=== PATIENT | female | born 1985 | race Caucasian/White ===

== ENCOUNTER 2025-03-12 06:20 | Emergency (ER) | payer OTHER, SELFPAY ==
--- OUTSIDE RECORDS SUMMARY | 2025-03-12 06:23 | XMS_ITS | Clinical Summary ---
Author Organization [employer] [facility] Address [facility] [place] [address] Care Team Providers Care Real Estate Transaction Manager Name Role Phone AbiBradri Katina Primary Care Provider [phone] Allergies No known active allergies Medications traZODone (DESYREL) 100 mg tabletIndicatio ns:Psychophysio logical insomnia Take 1 Tablet (100 mg) by mouth at bedtime. 100 Tablet 3 4 Active predniSONE 20 mg tabletIndicatio ns:Skin lesion,Itch of skin Take 3 Tablets (60 mg) by mouth once daily with a meal for 4 days, THEN 2 Tablets (40 mg) once daily with a meal for 4 days, THEN 1 Tablet (20 mg) once daily with a meal for 4 days. 24 Tablet 5 03/12/20 25 Active hydrOXYzine HCL 25 mg tabletIndicatio ns:Skin lesion,Itch of skin Take 1 Tablet (25 mg) by mouth every 6 hours if needed for Itching. 100 Tablet 5 Active triamcinolone (ARISTOCORT; KENALOG) 0.1 % creamIndication s:Atopic dermatitis, unspecified type Apply topically to affected area(s) two times daily. Up to 2 weeks for eczema flare to arms and legs 80 g 4 02/29/20 25 Discontinu ed(*Allerg ic/Adverse Rxn/Side Effects) Hospital, Clinic, or Other Facility Administered Medication Ordered Dose Route Frequency Start Date End Date Status levonorgestrel (MIRENA) 20 mcg/24 hours (8 yrs) 52 mg intrauterine device (IUD) 1 DeviceIndications:Encounter for IUD insertion 1 Device IU Q 8 YEARS 03/22/2024 Active Active Problems Problem Noted Date Diagnosed Date Atopic dermatitis 03/13/2024 Iron deficiency anemia, unspecified 12/15/2016 Decreased appetite 11/26/2015 Atypical nevus 06/27/2015 Overview (06/27/2015): Left inferior breast lesion 06/2015: Evolving melanoma in situ cannot be excluded. As such, complete excision with 0.5 cm negative margins and close clinical followup is recommended. Patient advised to return for wide excision. Dermatology referral placed for skin evaluation. 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 Plan: Pap/HPV due 02/2027. Adjustment disorder with depressed mood 02/14/20 15 Hx of cold sores 01/30/2014 Tobacco abuse 01/04/2014 Supervision of normal first 01/04/2014 Overview (01/04/2014): FOB: Polo Wright ACNE [birth year]14[birth year]2002 Resolved Problems Problem Noted Date Diagnosed Date Resolved Date Sleep disorder 09/03/2012 01/04/2014 Adjustment disorder with dep ressed mood, and anxiety 04/14/2011 01/04/2014 Low grade squamous intraepit helial lesion (LGSIL) at risk for high grade squamous intraepithelial lesion (HGSIL) on cytologic smear of cervix 04/17/2009 12/27/2016 Overview (12/23/2016): 04/17/2009: LSIL; cannot exclude a higher-grade lesion 01/30/2014: LSIL; cannot exclude a higher-grade lesion TOBACCO USE 08/27/2004 09/03/2012 CONTRACEPTIVE MANAGEMENT NOS 08/29/2003 09/03/2012 LATE EFFECT, CHEST INJURY 06/21/2001 Encounters Date Type Department Care Team Description 02/28/2025 3:20 PM CDT Office Visit [facility] [address] [place] [address] Nicole Valle MD Derm Problem (Dry itchy skin, triamcinolone cream made it worse ) 02/28/2025 Travel from Last 3 Months Immunizations Immunization Administration Dates Next Due DTP 05/19/1991, 8,01/03/1986,1985, Human Papilloma Virus Vaccine 03/31/2010, 010,10/04/2009 MMR 05/07/1998,09/18/1986 Oral Polio Vaccine 03/25/1988,01/03/1986, 986,1985 Td (Age >=7 Years) 05/08/1998 Tdap 06/18/2014,08/31/2012 Family History Medical History Relation Name Comments Psychiatric illness Brother paranoid schizophrenia Crohn's disease Father Nephrolithiasis Father Cancer-breast Maternal Aunt Diabetes Maternal Grandfather Hypertension Maternal Grandfather Relation Name Status Comments Brother Father Maternal Aunt Maternal Grandfather Social History Tobacco Use Types Packs/Day Years Used Date Smoking Tobacco: Every Day Cigarettes 1 24.5 Started: 09/20/2000 Smokeless Tobacco: Never Tobacco Cessation:Ready to Q uit: Not Asked; Counseling Given: Not Answered Comments:trying to cut back Alcohol Use Standard Drinks/Week Comments Yes 0 (1 standard drink = 0.6 oz pur e alcohol) ocassional PHQ-2 Answer Date Recorded PHQ-2 TOTAL SCORE 0 03/13/2024 Social Connections Answer Date Recorded Do you often feel lonely or isolated from those around you? 0 02/28/2025 Financial Resource Strain Answer Date R ecorded Difficulty of Paying Living Expenses 3 02/28/2025 Difficulty of Paying Living Expenses Not on file 02/28/2025 Food Insecurity Answer Date Recorded Do you worry your food will run out before you are able to buy more? 1 02/28/2025 Transportation Needs Answer Date Record ed Does lack of transportation keep you from medica l appointments? 1 02/28/2025 Does lack of transportation keep you from work, meetings or getting things that you need? 1 02/28/2025 Housing Stability Answer Date Recorded What is your housing situation today? 1 02/28/2025 Utilities Answer Date Recorded Do you have trouble paying f or utilities (for example, heat, electricity, water, phone)? 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 Please review and update details. Last Filed Vital Signs Vital Sign Reading Time Taken Comments Blood Pressure 126/78 02/28/2025 3:12 PM CDT Pulse 74 02/28/2025 3:12 PM CDT Temperature 36.2 C (97.2 F) 03/01/2023 8:20 AM CDT Respiratory Rate 14 03/01/2023 8:20 AM CDT Oxygen Saturation 98% 02/28/2025 3:12 PM CDT Inhaled Oxygen Concentration - - Weight 50.2 kg (110 lb 11.2 oz) 02/28/2025 3:12 PM CDT Height 161 cm (5' 3.39) 02/28/2025 3:12 PM CDT Body Mass Index 19.37 02/28/2025 3:12 PM CDT Plan of Treatment Upcoming Encounters Date Type Department Care Team (Late st Contact Info) Description 03/27/2025 1:30 PM CDT Office Visit [facility] [address] [facility] [address] [place] [address] Jovanni Link [place] [address] [place] [id number] Health Maintenance Due Date Last Done Comments Hepatitis B series for 19+ ( 1 of 3 - 19+ 3-dose series) 2004 Pneumococcal series for age 6-49 (1 of 2 - PCV) 2004 COVID-19 vaccine series ( - season) 2024 Tetanus booster 06/18/2024 06/18/2014, 08/20, 05/08/1998 Depression screening for age 12+ 03/13/2025 03/13/2024, 10/07/2022, 04/28/2021, Additional history exists Influenza Vaccine (Season Ended) 2025 BMI (ht and wt on same day) for age 18+ 02/28/2026 02/28/2025, 03/13/2024, 01/31/2024, Additional history exists Pap test for age 21-65 03/13/2027 , 03/13/2024, 04/28/2021, Additional history exists HIV for age 15-65 Completed 01/30/2014 Tdap Completed 06/18/2014, 08/31/2012 Hepatitis C screening for ag e 18-79 Completed 03/13/2024 Procedures Procedure Name Priority Date/Time Associated Diagnosis Comments STRAPPING MACHINE OPERATOR THIN PREP PAP SCREEN IMAGED Routine 03/13/2024 1:14 PM CDT Cervical cancer screening ANTI HCV Routine 03/13/2024 11:57 AM CDT Need for hepatitis C screening test ANTI HIV 1/2 Routine 01/30/2014 11:23 AM CDT , first (HC) from Last 3 Months or Most Recently Relevant to Health Maintenance Results * STRAPPING MACHINE OPERATOR THIN PREP PAP SCREEN IMAGED (03/13/2024 1:14 PM CDT) Case Report Gynecologic Cytology Report Case: [id number] Authorizing Provider: Princess Alex DO Collected: 03/13/2024 1314 Ordering Location: [facility] Received: 03/13/2024 1314 Clinic First Screen: Vani Timmons Rescreen: Aundrea Briggs Specimen: STRAPPING MACHINE OPERATOR ThinPrep Vial Screening, Cervical 03/21/2024 8:49 AM CDT [facility] INTERPRETATION/ RESULT NEGATIVE FOR INTRAEPITHELIAL LESION OR MALIGNANCY (NIL) (none) 03/21/2024 8:49 AM CDT [facility] at 0849 CDT SPECIMEN ADEQUACY Satisfactory for evaluation Endocervical component present 03/21/2024 8:49 AM CDT [facility] HPV REQUEST HPV and PAP 03/21/2024 8:49 AM CDT [facility] Date of LMP N/A 03/21/2024 8:49 AM CDT [facility] Last Pap Date 04/28/21 03/21/2024 8:49 AM CDT [facility] Last Pap Result NIL 8:49 AM CDT [facility] Abnormal Pap or [place] Bx in last 5 years Yes 03/21/2024 8:49 AM CDT [facility] Menstrual Status Hormonally Suppressed 03/21/2024 8:49 AM CDT [facility] [place] Bx Done Today No 03/21/2024 8:49 AM CDT [facility] Additional Information None given 03/21/2024 8:49 AM CDT [facility] Comment: Cytology is screened at [facility] - [address], [place] [address] and [facility] - [address], [place] [address] and [facility] - [address] [place] [address] Interpreted at [facility] - [address], [place] [address] Automated Review Successful 03/21/2024 8:49 AM CDT [facility] Comment:Specimen processed s uccessfully by automated magnetic doctor device, ThinPrep Imaging System, [employer] ANCILLARY TESTING STRAPPING MACHINE OPERATOR HPV Ordered, Please see separate report 03/21/2024 8:49 AM CDT [facility] Note The pap test is a screening technique, not a diagnostic procedure. It is used primarily to screen for squamous cancers and precursor lesions. Published studies have shown that it is subject to both false negative and false positive results. The pap test should not be used as the sole means to diagnose or exclude pre-malignant and malignant lesions. 03/21/2024 8:49 AM CDT [facility]- ENTRAL LABORAT[facility] Other (Cervical) Non-Blood / Unknown 03/13/2024 1:14 PM CDT 03/13/2024 1:14 PM CDT Princess Alex DO PATHOLOGY/CYTOLOGY Final Re sult Performing Organization Address [facility] de Phone Number [facility] [address] [place] [address], [place] * ANTI HCV (03/13/2024 11:57 AM CDT) Pathologist [facility] HEPATITIS C ANTIBODY Non-Reacti ve Non-React eliceo 03/13/2024 7:10 PM CDT [facility] TRAL LABORAT[facility] Comment:Please note, per www .CDC.gov: If a patient is known to be at high risk of HCV infection, or is symptomatic, and the physician's suspicion of HCV infection is high, HCV RNA testing is often employed and is of diagnostic value, even after an initial negative anti-HCV test result. Blood BLOOD SPECIMEN / Unknown Venipuncture / Unknown 03/13/2024 11:57 AM CDT 03/13/2024 11:57 AM CDT Princess Alex DO SEND OUTS Final Resul t Performing Organization Address [facility] Co de Phone Number [facility] [address] [place] [id number], [place] * ANTI HIV 1/2 [[address].0] (01/30/2014 11:23 AM CDT) Pathologist [facility] HIV-1/HIV-2 ANTIBODY Non-Reacti ve Non-Reacti ve 01/30/2014 11:04 PM CDT [facility] Blood specimen (specimen) BLOOD SPECIMEN / Unknown Venipuncture / Unknown 01/30/2014 11:23 AM CDT 01/30/2014 11:23 AM CDT Narrative [facility] - 01/30/2014 11:04 PM CDT HIV-1 p24 and HIV-1/HIV-2 Ab not detected us Kusum Garsia MD SEND OUTS Irina l Result [facility] [address] [place] [address], [place] from Last 3 Months or Most Recently Relevant to Health Maintenance Insurance [facility] [place] [id number] [facility] [place] [id number] Care Teams Real Estate Transaction Manager Relationship Specialty [place] [address] [place] [address] PCP - General Family Practice 08/20/15
--- OUTSIDE RECORDS SUMMARY | 2025-03-12 06:23 | XMS_ITS | Clinical Summary ---
Author Organization [facility] Address [address] [address] Phone Care Team Providers Care Chain Mender Name Role Phone Unavailable Primary Care Provider Unavailabl e Allergies No known active allergies Medications ibuprofen (ADVIL) 200 MG tablet Take 3 Tabs by mouth every six hours as needed for Pain. Active desogestrel-ethi nyl estradiol (MIRCETTE) 0.15-0.02/0.01 MG (07/02) oral tablet Take 1 Tab by mouth one time a day. 3 Package 3 10/17/2014 Active sulfamethoxazole -trimethoprim (BACTRIM DS, SEPTRA DS) 800-160 MG oral tablet Take 1 Tab by mouth two times a day. 20 Tab 0 10/17/2014 Active Active Problems Problem Noted Date Diagnosed Date Normal , first 06/08/2014 Immunizations Immunization Administration Dates Next Due DPT <7 years (Historic) 05/19/1991,03/25,01/03/1986,10/31/18 86,1985 Human Papilloma Virus Quadrivalent 03/31/2010,,10/04/2009 MMR 05/07/1998,09/18/1986 OPV (Historic Use Only) 03/25/1988,01/03,1985,08/04/19 85 TD >7yrs With Preservative 05/08/1998 Tdap (7 years and older) 06/18/2014,08/31/2012 Medical History Medical History Date Comments LGSIL (low grade squamous intraepithelial dyspla eder) 03/05/14 Vomiting alone 03/05/2014 Family History Medical History Relation Comments Psychiatric Disease Brother paranoid lamonte izophrenia Diabetes Maternal Grandfather Relation Status Comments Brother Maternal Grandfather Social History Tobacco Use Types Packs/Day Years Used Date Smoking Tobacco: Every Day Cigarettes 0.5 16 Smokeless Tobacco: Never Tobacco Cessation:Ready to Q uit: Yes; Counseling Given: Yes Alcohol Use Standard Drinks/Week Comments No 0 (1 standard drink = 0.6 oz pur e alcohol) Comments No Sex and Gender Information Value Date Recorded Sex Assigned at Not on file Legal Sex Female 8:42 PM CDT Gender Identity Not on file Sexual Orientation Not on file 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 Not on file Not on file Obstetrics History Para Term AB IAB SAB Ectopic Molar Multiple Living Live Births 1 1 1 0 1 1 Date Outcome GA Total Labor Labor/2nd/3rd Weight Sex Type Anes PTL Valerie A1 A5 Name Clin 2013 Term 39w 5d 9h 41m 8h 32m/0h 59m/0h 10m 3124 g (6 lb 14.2 oz) F Vag-S pont Epidur al Livin g 9 9 Dallasl eadrew, Cally Maldonado MD, FACOG Delivery Location:[facility] Last Filed Vital Signs Vital Sign Reading Time Taken Comments Blood Pressure 116/78 10/17/2014 9:49 AM SANITARY LANDFILL SUPERVISOR Pulse 72 08/31/2014 7:46 AM SANITARY LANDFILL SUPERVISOR Temperature 36.6 C (97.9 F) 08/31/2014 7:46 AM SANITARY LANDFILL SUPERVISOR Respiratory Rate 16 08/31/2014 7:46 AM SANITARY LANDFILL SUPERVISOR Oxygen Saturation 94% 08/30/2014 6:30 AM SANITARY LANDFILL SUPERVISOR Inhaled Oxygen Concentration - - Weight 56.7 kg (125 lb) 10/17/2014 9:49 AM SANITARY LANDFILL SUPERVISOR Height 162.6 cm (5' 4.02) 10/17/2014 9:49 AM CS T Body Mass Index 21.44 10/17/2014 9:49 AM SANITARY LANDFILL SUPERVISOR Plan of Treatment Health Maintenance Due Date Last Done Comments Cervical Cancer Screening 1985 Last pap w/ HPV Testing 1985 Last pap w/o HPV Testing 1985 Hepatitis B Vaccine (Standing Order) (1 of 3 - 19+ 3-dose series) 2004 TETANUS (Standing Order) 06/18/2024 014, 08/31/2012, 05/08/1998, Additional history exists HPV Vaccine (Standing Order) Completed 03/31/2010, 12/25/2009, 10/04/2009 PERTUSSIS (Standing Order) Completed 06/18, 08/31/2012, 05/19/1991, Additional history exists Pneumococcal/PCV20 Vaccine: Pediatrics (2-5 yrs) and At-Risk Patients (6-49 yrs) (Standing Order) Aged Out No longer eligible based on patient's age to complete this topic Insurance [facility]
[2025-03-12 06:27] VITALS: BP 160/91; PULSE 104; RESP 18; TEMP 36.8; O2SAT 99; BMI 20.4
[2025-03-12 06:47] LABS: Appearance Urine Cloudy (Clear); Bilirubin Urine 1+ (Negative); Blood Urine 3+ (Negative); Color Urine Yellow (Yellow); Glucose Urine Negative (Negative); Ketones Urine 4+ (Negative); Leukocyte Esterase Urine Negative (Negative); Nitrite Urine Negative (Negative); Protein Urine 2+ (Negative); Urobilinogen Urine 0.2 (0.2-1.0); pH Urine 6.5 (5.0-8.5)
[2025-03-12 06:51] LABS: Ur HCG Qualitative* Negative (Negative)
[2025-03-12 07:02] LABS: Bacteria Urine Moderate; RBC Urine 25-50 (0-2); Squamous Epithelial Cell Urine Moderate (None-Few); WBC Urine 0-2 (0-5)
--- NOTE | 2025-03-12 07:03 | ED.GENADULT ---
HPI - General Adult General Chief complaint: Flank Pain <Kriss Gilman MD - Last Filed: 03/14/25 00:45> Stated complaint: thinks her kidneys are failing- was here yesterday <Kriss Gilman MD - Last Filed: 03/14/25 00:45> Time Seen by Provider: 03/12/25 06:31 <Kriss Gilman MD - Last Filed: 03/14/25 00:45> Source: patient <Kriss Gilman MD - Last Filed: 03/14/25 00:45> Mode of arrival: ambulatory <Kriss Gilman MD - Last Filed: 03/14/25 00:45> Limitations: no limitations <Kriss Gilman MD - Last Filed: 03/14/25 00:45> History of Present Illness HPI narrative: 39-year-old female presents to the emergency department for evaluation of bilateral lower pelvic area abdominal pain for the last 48 hours accompanied by severe nausea and vomiting. No trauma or injury. Does have a history of kidney stones in the past, has been several years. Non that ever required instrumentation, stent placement or lithotripsy. She reports that she has an IUD for menstrual cycle management and contraception, denies chance of . She has noticed intermittent hematuria over the last few days. Last bowel movement was 2 days ago, states that it was normal, no blood, no severe diarrhea. She has not been able to hold down any solid foods for the past 2 days. Pain does seem to come in waves. She reports that she presented to the ED yesterday, it is been chaotic here the last few days and since she was feeling better, she left after triage. Has continued to feel poorly and has been unable to hold down any food and only scant liquids. Pain is achy, intermittent, bilateral lower pelvic. Epigastrium hurts a little from vomiting as well but differently. No trauma or injury. No sick contacts, no pertinent travel. No prior history of any GI surgeries or gynecological surgeries. She reports her past medical history is benign. Her only home medication is trazodone, unsure of dose. No prior abdominal surgeries, IUD for contraception, denies chance of . Smoker. ROS is notable for the GI symptoms only, otherwise denies times 12 systems. <Kriss Gilman MD - Last Filed: 03/14/25 00:45> Related Data Home medications: Home Medications ?Medication ?Instructions ?Recorded ?Confirmed trazodone 100 mg tablet 100 mg PO QPM 03/11/25 03/12/25 Previous Rx's ?Medication ?Instructions ?Recorded ciprofloxacin HCl 500 mg tablet 500 mg PO BID 7 days #14 tabs 03/12/25 ketorolac 10 mg tablet 10 mg PO TID 5 days #15 tabs 03/12/25 <Kriss Gilman MD - Last Filed: 03/14/25 00:45> Allergies/adverse reactions: Allergies Allergy/AdvReac Type Severity Reaction Status Date / Time No Known Drug Allergies Allergy Verified 03/12/25 06:30 <Kriss Gilman MD - Last Filed: 03/14/25 00:45> PFSH PFS Medical History: Medical History History of cold sores ?Z86.19 - Personal history of other infectious and parasitic diseases (ICD-10) Adjustment disorder with depressed mood ?F43.21 - Adjustment disorder with depressed mood (ICD-10) Acne ?L70.9 - Acne, unspecified (ICD-10) Tobacco use disorder ?F17.200 - Nicotine dependence, unspecified, uncomplicated (ICD-10) Sleep disorder ?G47.9 - Sleep disorder, unspecified (ICD-10) Low grade squamous intraepithelial lesion (LGSIL) at risk for high grade squamous intraepithelial lesion (HGSIL) on cytologic smear of cervix ?R87.612 - Low grade squamous intraepithelial lesion on cytologic smear of cervix (LGSIL) (ICD-10) Atypical nevus ?D22.9 - Melanocytic nevi, unspecified (ICD-10) Iron deficiency anemia, unspecified ?D50.9 - Iron deficiency anemia, unspecified (ICD-10) Atopic dermatitis ?L20.9 - Atopic dermatitis, unspecified (ICD-10) <Kriss Gilman MD - Last Filed: 03/14/25 00:45> Surgical History: Surgical History Hx of wisdom tooth extraction ?K08.409 - Partial loss of teeth, unspecified cause, unspecified class (ICD-10) History of removal of cyst ?Z98.890 - Other specified postprocedural states (ICD-10) History of colposcopy ?Z98.890 - Other specified postprocedural states (ICD-10) <Kriss Gilman MD - Last Filed: 03/14/25 00:45> Social History: Social History Smoking Status: Current every day smoker What tobacco products do you use: cigarettes Second hand tobacco smoke exposure: Yes How often do you have a drink containing alcohol: never AUDIT-C Alcohol total score: 0 Non-prescribed substance use: denies use <Kriss Gilman MD - Last Filed: 03/14/25 00:45> Exam Const: Vital Signs, click to edit/add: Vital Signs - 24 hr 03/12/25 06:27 Temperature 98.2 F Pulse Rate [Right Pulse Oximeter] 104 H Respiratory Rate 18 Blood Pressure [Ri ght Upper Arm] 160/91 H Pulse Oximetry 99 Oxygen Delivery Me thod Room Air <Kriss Gilman MD - Last Filed: 03/14/25 00:45> Vital Signs, click to edit/add: Vital Signs - 24 hr 03/12/25 06:27 Temperature 98.2 F Pulse Rate [Right Pulse Oximeter] 104 H Respiratory Rate 18 Blood Pressure [Ri ght Upper Arm] 160/91 H Pulse Oximetry 99 Oxygen Delivery Me thod Room Air <Hien Moore MD - Last Filed: 03/12/25 08:53> Documenting provider has reviewed patient's vital signs: yes <Kriss Gilman MD - Last Filed: 03/14/25 00:45> Common normals: no apparent distress and alert <Kriss Gilman MD - Last Filed: 03/14/25 00:45> General appearance: cooperative and well kempt <Kriss Gilman MD - Last Filed: 03/14/25 00:45> Other: Appears a little uncomfortable and dehydrated but otherwise benign. Good historian. <Kriss Gilman MD - Last Filed: 03/14/25 00:45> HENMT: Common normals: normocephalic <MD Reji Walter Last Filed: 03/14/25 00:45> Head and scalp: normocephalic <MD Reji Walter Last Filed: 03/14/25 00:45> Other: Normal facial exam, mucous membranes slightly dry but otherwise normal. <MD Reji Walter Last Filed: 03/14/25 00:45> Eye: Common normals: conjunctivae normal <MD Reji Walter Last Filed: 03/14/25 00:45> General eye: normal appearance of both eyes <MD Reji Walter Last Filed: 03/14/25 00:45> Conjunctiva: conjunctiva(e) normal <MD Reji Walter Last Filed: 03/14/25 00:45> Neck & C-Spine: Common normals: full ROM and no lymphadenopathy <MD Reji Walter Last Filed: 03/14/25 00:45> General: normal visual inspection <MD Reji Walter Last Filed: 03/14/25 00:45> Resp: Common normals: normal respiratory effort, no use of accessory muscles and clear to auscultation bilaterally <MD eRji Walter Last Filed: 03/14/25 00:45> Effort & inspection: able to speak in complete sentences <MD Reji Walter Last Filed: 03/14/25 00:45> Auscultation: clear to auscultation bilaterally <MD Reji Walter Last Filed: 03/14/25 00:45> Cardio: Common normals: regular rate, regular rhythm, S1 normal heart sound, S2 normal heart sound and no murmurs <MD Reji Walter Last Filed: 03/14/25 00:45> Rate: regular rate <MD Reji Walter Last Filed: 03/14/25 00:45> Rhythm: regular rhythm <MD Reji Walter Last Filed: 03/14/25 00:45> Heart sounds: S1 normal and S2 normal <MD Reji Walter Last Filed: 03/14/25 00:45> GI: Common normals: Normal to inspection, nondistended, normoactive bowel sounds present, soft to palpation, no hepatosplenomegaly and no masses <MD Reji Walter Last Filed: 03/14/25 00:45> Palpation: soft and no hepatosplenomegaly <MD Reji Walter Last Filed: 03/14/25 00:45> Other: Mild tenderness to palpation of epigastrium but also suprapubic region. Certainly no rebound tenderness or guarding. No mass. <MD Reji Walter Last Filed: 03/14/25 00:45> : Common normals: no CVA tenderness <MD Reji Walter Last Filed: 03/14/25 00:45> Bladder/kidney exam: no CVA tenderness <MD Reji Walter Last Filed: 03/14/25 00:45> Back & Pelvis: Common normals: no CVA tenderness <MD Reji Walter Last Filed: 03/14/25 00:45> Extremity: Common normals: normal to inspection, normal capillary refill and no pedal edema <MD Reji Walter Last Filed: 03/14/25 00:45> Neuro: Common normals: moves all extremities <MD Reji Walter Last Filed: 03/14/25 00:45> Sensorium/orientation: alert <MD Reji Walter Last Filed: 03/14/25 00:45> Speech: speech normal <MD Reji Walter Last Filed: 03/14/25 00:45> Motor exam: no movement abnormalities noted <MD Reji Walter Last Filed: 03/14/25 00:45> Psych: Appearance: well kempt <MD Reji Walter Last Filed: 03/14/25 00:45> Attitude: engaged <MD Reji Walter Last Filed: 03/14/25 00:45> Activity/motor behavior: appropriate eye contact <Kriss Gilman MD - Last Filed: 03/14/25 00:45> Attention/concentration: attention grossly intact <Kriss Gilman MD - Last Filed: 03/14/25 00:45> Memory/cognition: memory grossly intact <Kriss Gilman MD - Last Filed: 03/14/25 00:45> Insight: insight good <Kriss Gilman MD - Last Filed: 03/14/25 00:45> Judgement: judgment good <MD Reji Walter Last Filed: 03/14/25 00:45> Skin: Common normals: no rashes or lesions noted <Kriss Gilman MD - Last Filed: 03/14/25 00:45> General skin exam: no rashes or lesions noted <Kriss Gilman MD - Last Filed: 03/14/25 00:45> Course Course ED Course: 39-year-old female with hematuria, history of kidney stones and bilateral lower abdominal pain with 2 days of nausea and vomiting. She suspects kidney stone, I am inclined to agree that this is high on the differential diagnosis. Cannot exclude complicated urinary tract infection with ascending pyelonephritis, diverticulitis, bowel obstruction, ovarian pathology, IUD complications, PID, gastroenteritis, pancreatitis, musculoskeletal etiology, amongst others. Will place peripheral IV, give a L of normal saline, 4 of Zofran and 15 of Toradol. Typical GI labs, urinalysis and test. If test negative as expected, proceed with noncontrast abdomen and pelvis CT. <Kriss Gilman MD - Last Filed: 03/14/25 00:45> Reevaluation(s) Reevaluation #1: I was asked to take over the care for this patient. Upon re-evaluation, patient is feeling much better, has not had vomiting for a while. Her pain is well controlled. She did state that she was having bilateral anterior pelvic pain however she states that her pain started in her low back and then radiated to the front yesterday which is suspicious for removing kidney stone. Her CBC shows an elevated white cell count 18.63, 82.3% neutrophils. Her hemoglobin was elevated at 16.2. Sodium was slightly low at 132, normal potassium. Her calcium was elevated at 11.1. CRP just slightly elevated at 1.6. Normal LFTs and normal lipase. Urinalysis showed 4+ ketones, 3+ blood with 25-[address] scan was unremarkable. Discussed possible causes of her symptoms: Patient does have a history of kidney stones she certainly could have passed a stone. UTI cannot be definitively ruled out at this time with ascending pyelonephritis cannot be definitively ruled out at this time. Because of the potential of different diagnoses, we will treat her with both Toradol and ciprofloxacin. I recommend she follow up with her primary care provider in 48-72 hours to have repeat lab work done to make sure her white cell count is coming down and that her calcium levels have come down after hydration. <Hien Moore MD - Last Filed: 03/12/25 08:53> Vital Signs Vital signs: Initial Vital Signs Temperature 98.2 F 03/12/25 06:27 Temperature Source Temporal Artery Scan 03/12/25 06:27 Pulse Rate 104 H 03/12/25 06:27 Respiratory Rate 18 03/12/25 06:27 Blood Pressure 160/91 H 03/12/25 06:27 Blood Pressure Mean 114 H 03/12/25 06:27 Blood Pressure Position Sitting 03/12/25 06:27 Pulse Oximetry 99 03/12/25 06:27 Oxygen Delivery Method Room Air 03/12/25 06:27 Vital Signs Temperature 98.2 F 03/12/25 06:27 Pulse Rate 104 H 03/12/25 06:27 Respiratory Rate 18 03/12/25 06:27 Blood Pressure 160/91 H 03/12/25 06:27 Pulse Oximetry 99 03/12/25 06:27 Oxygen Delivery Method Room Air 03/12/25 06:27 Temperature 98.2 F 03/12/25 06:27 Pulse Rate 62 03/12/25 09:15 Respiratory Rate 16 03/12/25 09:15 Blood Pressure 160/91 H 03/12/25 06:27 Pulse Oximetry 99 03/12/25 09:15 Oxygen Delivery Method Room Air 03/12/25 09:15 <Kriss Gilman MD - Last Filed: 03/14/25 00:45> Initial Vital Signs Temperature 98.2 F 03/12/25 06:27 Temperature Source Temporal Artery Scan 03/12/25 06:27 Pulse Rate 104 H 03/12/25 06:27 Respiratory Rate 18 03/12/25 06:27 Blood Pressure 160/91 H 03/12/25 06:27 Blood Pressure Mean 114 H 03/12/25 06:27 Blood Pressure Position Sitting 03/12/25 06:27 Pulse Oximetry 99 03/12/25 06:27 Oxygen Delivery Method Room Air 03/12/25 06:27 Vital Signs Temperature 98.2 F 03/12/25 06:27 Pulse Rate 104 H 03/12/25 06:27 Respiratory Rate 18 03/12/25 06:27 Blood Pressure 160/91 H 03/12/25 06:27 Pulse Oximetry 99 03/12/25 06:27 Oxygen Delivery Method Room Air 03/12/25 06:27 Temperature 98.2 F 03/12/25 06:27 Pulse Rate 62 03/12/25 09:15 Respiratory Rate 16 03/12/25 09:15 Blood Pressure 160/91 H 03/12/25 06:27 Pulse Oximetry 99 03/12/25 09:15 Oxygen Delivery Method Room Air 03/12/25 09:15 <Hien Moore MD - Last Filed: 03/12/25 08:53> Medications Administered Medications: Discontinued Medications Generic Name Dose Route Start Last Admin Trade Name Freq PRN Reason Stop Dose Admin Sodium Chloride 1,000 mls @ 1,000 mls/hr 03/12/25 07:03 03/12/25 08:33 0.9 % Sodium Chloride 1000 Ml IV 03/12/25 08:02 Infused .Q1H SON Infusion Ketorolac Tromethamine 15 mg 03/12/25 07:03 03/12/25 07:30 Ketorolac 15 Mg/Ml Inj IVP 03/12/25 07:04 15 mg ONCE ONE Administration Ondansetron HCl 4 mg 03/12/25 07:03 03/12/25 07:30 Ondansetron 2 Mg/Ml Inj IVP 03/12/25 07:04 4 mg ONCE ONE Administration <Kriss Gilman MD - Last Filed: 03/14/25 00:45> Discontinued Medications Generic Name Dose Route Start Last Admin Trade Name Freq PRN Reason Stop Dose Admin Sodium Chloride 1,000 mls @ 1,000 mls/hr 03/12/25 07:03 03/12/25 08:33 0.9 % Sodium Chloride 1000 Ml IV 03/12/25 08:02 Infused .Q1H SON Infusion Ketorolac Tromethamine 15 mg 03/12/25 07:03 03/12/25 07:30 Ketorolac 15 Mg/Ml Inj IVP 03/12/25 07:04 15 mg ONCE ONE Administration Ondansetron HCl 4 mg 03/12/25 07:03 03/12/25 07:30 Ondansetron 2 Mg/Ml Inj IVP 03/12/25 07:04 4 mg ONCE ONE Administration <Hien Moore MD - Last Filed: 03/12/25 08:53> Medical Decision Making MDM Narrative Medical decision making narrative: 39-year-old female with nausea vomiting, flank and pelvic pain suspicious for passed kidney stone or potential UTI. Plan per above. <Hien Moore MD - Last Filed: 03/12/25 08:53> Lab Data Lab results reviewed: Yes I reviewed the patient's lab results <Hien Moore MD - Last Filed: 03/12/25 08:53> Labs: Lab Results 03/12/25 03/12/25 Range/Units 06:40 07:20 WBC 18.63 H (4.50-11.00) K/uL RBC 5.02 (4.00-5.20) m/uL Hgb 16.2 H (12.0-16.0) gm/dL Hct 45.8 (33.0-51.0) % MCV 91 (80-100) fL MCH 32 (26-34) pg MCHC 35 (32-36) gm/dL RDW Coeff of [place] 11.3 L (11.5-15.5) % Plt Count 306 (140-440) K/uL Neut % (Auto) 82.3 H (42.0-72.0) % Lymph % (Auto) 8.9 L (20-44) % [place] % (Auto) 8.3 (0.0-11.0) % Eos % (Auto) 0.1 (0.0-7.0) % Baso % (Auto) 0.1 (0.0-3.0) % Neut # (Auto) 15.30 H (1.7-7.0) K/uL Lymph # (Auto) 1.70 (0.90-2.90) K/uL [place] # (Auto) 1.50 H (0.00-0.90) K/UL Eos # (Auto) 0.00 (0.00-0.50) K/uL Baso # (Auto) 0.00 (0.00-0.30) K/uL Abs Immat Gran (auto) 0.10 (0.00-0.30) K/uL Imm/Tot Granulo (auto) 0.3 % Sodium 132 L (135-149) mmol/L Potassium 3.9 (3.6-5.1) mmol/L Chloride 99 (96-114) mmol/L Carbon Dioxide 23 (20-32) mmol/L Anion Gap 10 (7-15) mEq/L BUN 15 (5-24) mg/dL Creatinine 0.9 (0.5-1.5) mg/dL Estimated Creat Clear 69.11 Estimated GFR 83 ml/min Glucose 109 (60-115) mg/dL Calcium 11.1 H (8.4-10.6) mg/dL Total Bilirubin 1.2 (0.1-1.5) mg/dL AST 32 (12-35) U/L ALT 35 (4-35) U/L Alkaline Phosphatase 74 (40-150) U/L C-Reactive Protein 1.6 H (0.5-1.0) mg/dL Total Protein 7.1 (6.0-8.3) g/dL Albumin 4.4 (3.3-5.0) g/dL Lipase 134 (23-300) U/L Urine Color Yellow (Yellow) Urine Appearance Cloudy A (Clear) Urine pH 6.5 (5.0-8.5) Ur Specific [place] 1.020 (1.000-1.030) Urine Protein 2+ A (Negative) Urine Glucose (UA) Negative (Negative) Urine Ketones 4+ A (Negative) Urine Blood 3+ A (Negative) Urine Nitrite Negative (Negative) Urine Bilirubin 1+ A (Negative) Urine Urobilinogen 0.2 (0.2-1.0) Ur Leukocyte Esterase Negative (Negative) Urine RBC 25-50 A (0-2) Urine WBC 0-2 (0-5) Ur Squamous Epith Cells Moderate A (None-Few) Urine Bacteria Moderate A (None) Urine HCG, Qual Negative (Negative) <Kriss Gilman MD - Last Filed: 03/14/25 00:45> Lab Results 03/12/25 03/12/25 Range/Units 06:40 07:20 WBC 18.63 H (4.50-11.00) K/uL RBC 5.02 (4.00-5.20) m/uL Hgb 16.2 H (12.0-16.0) gm/dL Hct 45.8 (33.0-51.0) % MCV 91 (80-100) fL MCH 32 (26-34) pg MCHC 35 (32-36) gm/dL RDW Coeff of [place] 11.3 L (11.5-15.5) % Plt Count 306 (140-440) K/uL Neut % (Auto) 82.3 H (42.0-72.0) % Lymph % (Auto) 8.9 L (20-44) % [place] % (Auto) 8.3 (0.0-11.0) % Eos % (Auto) 0.1 (0.0-7.0) % Baso % (Auto) 0.1 (0.0-3.0) % Neut # (Auto) 15.30 H (1.7-7.0) K/uL Lymph # (Auto) 1.70 (0.90-2.90) K/uL [place] # (Auto) 1.50 H (0.00-0.90) K/UL Eos # (Auto) 0.00 (0.00-0.50) K/uL Baso # (Auto) 0.00 (0.00-0.30) K/uL Abs Immat Gran (auto) 0.10 (0.00-0.30) K/uL Imm/Tot Granulo (auto) 0.3 % Sodium 132 L (135-149) mmol/L Potassium 3.9 (3.6-5.1) mmol/L Chloride 99 (96-114) mmol/L Carbon Dioxide 23 (20-32) mmol/L Anion Gap 10 (7-15) mEq/L BUN 15 (5-24) mg/dL Creatinine 0.9 (0.5-1.5) mg/dL Estimated Creat Clear 69.11 Estimated GFR 83 ml/min Glucose 109 (60-115) mg/dL Calcium 11.1 H (8.4-10.6) mg/dL Total Bilirubin 1.2 (0.1-1.5) mg/dL AST 32 (12-35) U/L ALT 35 (4-35) U/L Alkaline Phosphatase 74 (40-150) U/L C-Reactive Protein 1.6 H (0.5-1.0) mg/dL Total Protein 7.1 (6.0-8.3) g/dL Albumin 4.4 (3.3-5.0) g/dL Lipase 134 (23-300) U/L Urine Color Yellow (Yellow) Urine Appearance Cloudy A (Clear) Urine pH 6.5 (5.0-8.5) Ur Specific [place] 1.020 (1.000-1.030) Urine Protein 2+ A (Negative) Urine Glucose (UA) Negative (Negative) Urine Ketones 4+ A (Negative) Urine Blood 3+ A (Negative) Urine Nitrite Negative (Negative) Urine Bilirubin 1+ A (Negative) Urine Urobilinogen 0.2 (0.2-1.0) Ur Leukocyte Esterase Negative (Negative) Urine RBC 25-50 A (0-2) Urine WBC 0-2 (0-5) Ur Squamous Epith Cells Moderate A (None-Few) Urine Bacteria Moderate A (None) Urine HCG, Qual Negative (Negative) <Hien Moore MD - Last Filed: 03/12/25 08:53> Imaging Data CT scan - abdomen: Attestation: I have reviewed the pertinent imaging results. <Hien Moore MD - Last Filed: 03/12/25 08:53> Radiologist's impression: TECHNIQUE: CT abdomen and pelvis without contrast. COMPARISON: 09/05/2021. FINDINGS: Visualized lung bases are clear. The liver is unremarkable. The gallbladder is distended. No CT evidence of acute cholecystitis. No biliary ductal dilatation. Spleen is unremarkable. Pancreas is unremarkable. Adrenal glands are unremarkable. The kidneys are without hydronephrosis. Tiny bilateral nonobstructing stones are seen. The urinary bladder is unremarkable. The stomach is partially distended with no substantial inflammatory fat stranding. Small and large bowel appear nondilated without evidence of obstruction. No free air. No ascites. No mesenteric lymphadenopathy. IUD is within the uterus. Aorta is normal in caliber. Bone windows demonstrate no suspicious lytic or sclerotic lesion. IMPRESSION: 1. No gross CT finding to explain the patient`s symptoms. 2. Small bilateral nonobstructing renal calculi. <Hien Moore MD - Last Filed: 03/12/25 08:53> Discharge Plan Discharge Clinical Impression: Pelvic pain, Vomiting <Kriss Gilman MD - Last Filed: 03/14/25 00:45> Patient Disposition: Home, Self-Care <Kriss Gilman MD - Last Filed: 03/14/25 00:45> Condition: Stable <Kriss Gilman MD - Last Filed: 03/14/25 00:45> Additional Instructions: Causes for your pain are not 100% clear at this time however it is likely that you had a kidney stone that passed. I cannot rule out a bladder infection at this time however. Therefore you will be treated with an antibiotic-ciprofloxacin 2 times per day, take all antibiotics as prescribed. You will also be sent home with a pain medication-Toradol, take as needed. Recommend you follow-up with your primary care provider in 48-72 hours. Your calcium levels were high today and your sodium levels were low. This can certainly be due to dehydration and vomiting you have been having, but it is important that you have these labs repeated to make sure that they have gone back to normal. Would also recommend a repeat urinalysis, in approximately 10-14 days to make sure that there is no more blood in the urine. <Kriss Gilman MD - Last Filed: 03/14/25 00:45> Prescriptions: New ciprofloxacin HCl 500 mg tablet 500 mg PO BID 7 Days Qty: 14 0RF ketorolac 10 mg tablet 10 mg PO TID 5 Days Qty: 15 0RF No Action trazodone 100 mg tablet 100 mg PO QPM <Kriss Gilman MD - Last Filed: 03/14/25 00:45> Follow Up/Referrals: Provider,Not a Local [Primary Care Provider, Family Practice] <Kriss Gilman MD - Last Filed: 03/14/25 00:45> Stand Alone Forms: MyHealth Info Instructions <Kriss Gilman MD - Last Filed: 03/14/25 00:45>
--- NOTE | 2025-03-12 07:06 | CT_ITS ---
Patient: DEREK SANDERS Facility:?[facility] Patient ID:?[id number] Site Patient ID:?[id number]. Site :?[id number] Study:?CT-Abdomen/Pelvis WITHOUT-03/12/2025 7:55:50 AM Ordering Physician:Shakira Monterroso Final Report: INDICATION: Stomach pain and hematuria TECHNIQUE: CT abdomen and pelvis without contrast. COMPARISON: 09/05/2021. FINDINGS: Visualized lung bases are clear. The liver is unremarkable. The gallbladder is distended. No CT evidence of acute cholecystitis. No biliary ductal dilatation. Spleen is unremarkable. Pancreas is unremarkable. Adrenal glands are unremarkable. The kidneys are without hydronephrosis. Tiny bilateral nonobstructing stones are seen. The urinary bladder is unremarkable. The stomach is partially distended with no substantial inflammatory fat stranding. Small and large bowel appear nondilated without evidence of obstruction. No free air. No ascites. No mesenteric lymphadenopathy. IUD is within the uterus. Aorta is normal in caliber. Bone windows demonstrate no suspicious lytic or sclerotic lesion. IMPRESSION: 1. No gross CT finding to explain the patient`s symptoms. 2. Small bilateral nonobstructing renal calculi. Please note that all CT scans at this facility use dose modulation, iterative reconstruction, and/or weight-based dosing when appropriate to reduce radiation dose to as low as reasonably achievable. Dictated by Victoriano Bashir MD @ 03/12/2025 8:06:22 AM (Electronic Signature)
[2025-03-12] MEDS: KETOROLAC 15 MG/ML inj IVP (07:30)
[2025-03-12] MEDS: 0.9 % SODIUM CHLORIDE 1000 ml 1,000 ML IV (07:30)
[2025-03-12] MEDS: ONDANSETRON 2 MG/ML inj 4 MG IVP (07:30)
[2025-03-12 07:32] LABS: Basophils Percent Auto 0.1 % (0.0-3.0); Eosinophils Percent Auto 0.1 % (0.0-7.0); Hematocrit 45.8 % (33.0-51.0); Hemoglobin* 16.2 gm/dL (12.0-16.0); Immature Granulocytes Pct Auto 0.3 %; Lymphocytes Percent Auto 8.9 % (20-44); Mean Corpuscular HGB Conc 35 gm/dL (32-36); Mean Corpuscular Hemoglobin 32 pg (26-34); Mean Corpuscular Volume 91 fL (80-100); Monocytes Percent Auto 8.3 % (0.0-11.0); Neutrophils Percent Auto 82.3 % (42.0-72.0); Platelet Count* 306 K/uL (140-440); RDW Coefficient of Variation % 11.3 % (11.5-15.5); Red Blood Count 5.02 m/uL (4.00-5.20); White Blood Count* 18.63 K/uL (4.50-11.00)
[2025-03-12 07:37] LABS: Slide Review Reflex No
[2025-03-12 07:47] LABS: Albumin* 4.4 g/dL (3.3-5.0); Chloride* 99 mmol/L (96-114); Potassium* 3.9 mmol/L (3.6-5.1); Sodium* 132 mmol/L (135-149)
[2025-03-12 07:49] LABS: Blood Urea Nitrogen* 15 mg/dL (5-24); Creatinine* 0.9 mg/dL (0.5-1.5); Est. Creatinine Clearance* 69.11; Estimated Glomerular Filt Rate 83 ml/min
[2025-03-12 07:50] LABS: Alanine Aminotransferase* 35 U/L (4-35); Alkaline Phosphatase* 74 U/L (40-150); Anion Gap 10 mEq/L (7-15); Aspartate Amino Transferase* 32 U/L (12-35); Bilirubin Total* 1.2 mg/dL (0.1-1.5); Carbon Dioxide* 23 mmol/L (20-32); Lipase* 134 U/L (23-300); Total Protein* 7.1 g/dL (6.0-8.3)
[2025-03-12 07:51] LABS: Calcium* 11.1 mg/dL (8.4-10.6); Glucose* 109 mg/dL (60-115)
[2025-03-12 07:53] LABS: C Reactive Protein* 1.6 mg/dL (0.5-1.0)
[2025-03-12 09:15] VITALS: PULSE 62; RESP 16; O2SAT 99
== END 2025-03-12 09:20 | disposition home or self-care (01) ==
PROVIDERS: Family Medicine; Emergency Provider Family Medicine
DX: R10.2 Pelvic and perineal pain (principal); R11.2 Nausea with vomiting, unspecified
CPT/HCPCS: 36415; 74176; 80053; 81001; 81025; 83690; 85025; 86140; 87086; 96361; 96374; 96375; 99284; J1885; J2405; J7030